=== PATIENT | female | born 1930 | race Caucasian/White ===

== ENCOUNTER 2017-09-28 07:56 | Day surgery (SDC) | payer OTHER ==
[~2017-09-28 07:56] MED LIST: ALPHAGAN P5 M2 OP; ASPIR 8181 MG PO; AZOPT10 ML OP; CENTRUM ADULTS1 EACH PO; COZAAR25 MG PO; GLUCOSAMIN-CHO1 EACH PO; LUTEIN40 MG PO; REFRESH PLUS1 EACH OP; XALATAN; [UNRECOGNIZED DRUG - CODE] PO
== END 2017-09-28 14:10 | disposition home or self-care (01) ==
LOC: CIR.AMB 07:56
DX: N39.41 Urge incontinence (principal); N32.81 Overactive bladder